=== PATIENT | female | born 1990 | race Caucasian/White ===

== ENCOUNTER 2017-07-29 18:46 | Emergency (ER) | payer BC, OTHER ==
[~2017-07-29] VITALS: Ht 172.7 cm; Wt 69.6 kg
[2017-07-29 18:59] VITALS: Ht 172.7 cm; Wt 69.6 kg
--- NOTE | 2017-07-29 20:12 | ERD ---
ER Documentation Chief Complaint Chief Complaint left neck pain w/ swelling x 2 days, anxiety HPI left sided biopsy 3 days , r/t 2 yr hx of a swollen gland, surgical site now feels swollen, pt repots dizziness, and weak. ROS All systems reviewed and are negative except as per history of present illness. Medications Home Meds Active Scripts Doxycycline Hyclate* (Doxycycline Hyclate*) 100 Mg Tablet.dr, 100 MG PO BID for 10 Days, #20 TAB Prov:MARSHA,JIM 07/29/17 Hydrocodone/Acetaminophen (Baldwin 5-325 Tablet) 1 Each Tablet, 1 TAB PO Q6H Y for PAIN, #20 TAB Prov:MARSHA,JIM 07/29/17 Allergies Allergies: Coded Allergies: cefaclor (Verified Allergy, Unknown, 07/29/17) Physical Exam Vitals Vital Signs Date Time Temp Pulse Resp B/P Pulse Ox O2 Delivery O2 Flow Rate FiO2 07/29/17 18:59 97.9 96 20 165/90 100 Physical Exam Const: Well-nourished well-hydrated well-appearing 26-year-old female no acute distress Head: Atraumatic Eyes: Normal Conjunctiva, PERRLA, EOMI ENT: Bilateral tympanic membranes translucent, auditory canals are clear, nasal mucosa moist, septum midline without bleeding points, pharynx is pink, uvula midline without shift, there is no visible ulceration, pustule, or edema to correlate with left lymphadenopathy Neck: Full range of motion..~ No meningismus. No bruising, erythema or warmth over firm tender lymph lymph node Resp: Cardio: Abd: Skin: Back: Ext: Neur: Awake and alert Psych: Normal Mood and Affect Result Diagram: 07/29/17202907/29/172029 Results 24 hrs Laboratory Tests Test 07/29/17 20:30 07/29/17 20:45 White Blood Count 9.910^3/ul Red Blood Count 4.2710^6/ul Hemoglobin 13.0g/dl Hematocrit 37.3% Mean Corpuscular Volume 87.4fl Mean Corpuscular Hemoglobin 30.4pg Mean Corpuscular Hemoglobin Concent 34.9g/dl Red Cell Distribution Width 12.0% Platelet Count 81752^3/UL Mean Platelet Volume 9.1fl Neutrophils % 70.7% Lymphocytes % 20.0% Monocytes % 6.2% Eosinophils % 2.4% Basophils % 0.5% Nucleated Red Blood Cells % 0.0/100WBC Neutrophils # 7.010^3/ul Lymphocytes # 2.010^3/ul Monocytes # 0.610^3/ul Eosinophils # 0.210^3/ul Basophils # 0.110^3/ul Nucleated Red Blood Cells # 0.010^3/ul Sodium Level 142mmol/L Potassium Level 3.8mmol/L Chloride Level 104mmol/L Carbon Dioxide Level 24mmol/L Anion Gap 18 Blood Urea Nitrogen 10mg/dl Creatinine 0.79mg/dl Glucose Level 93mg/dl Calcium Level 9.5mg/dl Total Bilirubin 0.3mg/dl Direct Bilirubin 0.00mg/dl Indirect Bilirubin 0.3mg/dl Aspartate Amino Transf (AST/SGOT) 19IU/L Alanine Aminotransferase (ALT/SGPT) 30IU/L Alkaline Phosphatase 47IU/L Total Protein 7.8g/dl Albumin 4.8g/dl Globulin 3.00g/dl Albumin/Globulin Ratio 1.60 Bedside Urine pH (LAB) 6.5 Bedside Urine Protein (LAB) Negative Bedside Urine Glucose (UA) Negative Bedside Urine Ketones (LAB) Negative Bedside Urine Blood Trace-intact Bedside Urine Nitrite (LAB) Negative Bedside Urine Leukocyte Esterase (L Negative Current Medications Medications (Trade) Dose Ordered Sig/Kd Route PRN Reason Start Time Stop Time Status Last Admin Dose Admin IV Flush 10 ml 10 ml STK-MED ONCE .ROUTE 07/29/17 20:27 07/29/17 20:28 DC Sodium Chloride (NS) 100 ml @ ud STK-MED ONCE .ROUTE 07/29/17 20:27 07/29/17 20:28 DC Iohexol (Omnipaque 300mg/ ml) 150 ml STK-MED ONCE .ROUTE 07/29/17 20:27 07/29/17 20:28 DC Interpretation text CBC shows no evidence of hemorrhage or infection Chemistry shows no evidence of significant electrolyte abnormalities or renal insufficiency Liver function tests shows no evidence of acute biliary or hepatic dysfunction Lipase shows no evidence of acute pancreatitis Urinalysis negative for evidence of infection Procedures/MDM PROCEDURE: CT Neck with contrast. CLINICAL INDICATION: Left submandibular swelling status post lymph node biopsy. TECHNIQUE: The study was performed utilizing a multislice multidetector CT scanner. Direct spiral 1 mm axial sections were obtained through the neck with the use of with the use of intravenous contrast material. 80 cc of Omnipaque- 300 was utilized without complication. 1 or more of the following dose reduction techniques were utilized: Automated exposure control, adjustment of the mA and/or kV according to patient's size, iterative reconstruction technique. Coronal and sagittal reformations were obtained. The images were reviewed on a PACS workstation. DICOM images are available. RADIATION DOSE: CTDIvol: 8.3 mGy DLP: 236.8 mGy-cm COMPARISON: No prior studies are available for comparison. FINDINGS: The nasopharynx, oropharynx and hypopharynx are normal in appearance. There is no tongue base mass. The larynx is normal in appearance. The parotid, submandibular and thyroid glands are normal in appearance. There are several moderately enlarged lymph nodes in the left submandibular region, the largest measuring 2.9 x 1.6 cm. There is a mild amount of soft tissue density adjacent to the lymph node, which is not with patient history of biopsy. There is no evidence of vascular extravasation or significant hematoma. There is no effacement of the parapharyngeal fat over the nasopharynx/oropharynx. The adjacent facial veins are normal in appearance. The vascular structures are normal. The paranasal sinuses and orbits are normal. Limited visualization of the intracranial contents is unremarkable. There are mild degenerative changes of the cervical spine. The lung apices are normal in appearance. IMPRESSION: 1. Significantly enlarged left submandibular (level II) lymph node measuring 2.9 x 1.6 cm, with mild adjacent soft tissue stranding compatible with patient history of recent biopsy. Given the size of the lymph node and adjacent common lymph nodes, concern is raised for possible lymphoid neoplasm. Follow-up results of patient's prior biopsy is recommended. No evidence of enlarging hematoma or vascular injury status post biopsy. RPTAT: HGAS .Isidro Merino MD, MD Date Time Electronically viewed and signed by .Isidro Merino MD, on 07/29/2017 22: 32 This 26-year-old female presents to emergency department for evaluation of pain and swelling, sensation of shortness of breath and difficulty swallowing. Patient reports that 3 days ago she had a biopsy done on a left-sided lymph node palpable under jaw. Patient has not received results at this time, she is satting 99% on room air, there is no obvious bruising, obvious unilateral edema. Emergency room course includes history and physical exam, CAT scan imaging with contrast, diagnostic laboratory testing, labs are unremarkable for anemia, hemorrhage, acute infection, no electrolyte imbalance or renal insufficiency, no hepatitis or pancreatitis. CAT scan is read by radiologist documents significant enlarged left submandibular, level 2, lymph node measuring 2.9 x 1.6 cm with mild adjacent soft tissue standing compatible with patient's history of recent biopsy. Given the size of the lymph node in the adjacent, lymph nodes concern is raised for possibility of lymph node neoplasm. Follow-up results of patient's prior biopsy is recommended no evidence of enlarged hematoma or vascular injury status post biopsy. This case discussed with supervising physician Dr. Mar plan to discharge patient home with pain control, Baldwin 5 mg 1 tab p.o. every 6 hours as needed pain, and doxycycline 100 mg mg 1 tab p.o. 2 times daily 10 days. Follow-up with primary physician for test results, return to emergency department for shortness of breath difficulty swallowing, or pain responding to treatment. Patient is stable with no new complaints during ER course, clinically there is no current evidence to suggest meningitis, sepsis, mandibular soft tissue hematoma or abscess acute abdomen, or any other emergent condition appearing to require further evaluation or hospitalization. I feel the patient is stable for discharge at this time. I have discussed results, examination findings, the treatment plan with the patient and family present prior to discharge. Indications for emergent reevaluation, side effects of medication were also discussed. All questions were answered. Patient verbalizes understanding and agrees with plan of care. Departure Diagnosis: Primary Impression: Enlarged lymph node in neck Additional Impression: Lymphadenopathy Condition: Good Patient Instructions: Lymphangitis, Lymphedema Additional Instructions: Thank you for for coming to [facility] for your care today. Please ask your nurse or provider if you have questions about your care today and do not leave until all your questions have been answered. Please use any medications given as directed and follow-up with your doctor (or the doctor you were referred to) in the next 2-3 days. If you do not have a primary care doctor you may follow up at the [facility] (listed below). You may also use motrin and tylenol as needed for fever and/or pain unless instructed otherwise by your provider or nurse. Indications for more urgent follow-up have been discussed, but you may return to the Emergency Department at ANY time for any worrisome or worsening symptoms. If you have abdominal pain, please know that no test or exam you received is perfect and you should follow up within 8 hours for continued pain. If you had any imaging studies today, such as an X-Ray or CT Scan, these studies will be reviewed later by a radiologist. You will be called if there are important findings that were not identified today, so make sure the contact information you provided at registration is correct. If you received any narcotic pain control medicine today, such as Vicodin, Morphine or Dilaudid, your coordination and judgment may be affected for a number of hours. Please do not drive or operate heavy machinery, and you may want someone to assist you at home. If you were given a prescription for narcotic medication, be aware that it is very addictive- use sparingly and only if necessary. JIM LARSON Jul 29, 2017 20:12
[2017-07-29] MEDS ORDERED: SOD CHLORIDE 0.9% 100 ML ONE (20:27)
[2017-07-29] MEDS ORDERED: IOHEXOL 300MG/ML 150 ML BTL ONE (20:27)
[2017-07-29 20:45] LABS: BASOPHIL # 0.1 10^3/ul (0.0-0.1); BASOPHILS % 0.5 % (0.0-2.0); EOSINOPHILS # 0.2 10^3/ul (0.0-0.5); EOSINOPHILS % 2.4 % (0.0-7.0); HEMATOCRIT 37.3 % (37.0-47.0); MEAN CORPUSCULAR HEMOGLOBIN 30.4 pg (29.0-33.0); MEAN CORPUSCULAR HGB CONC 34.9 g/dl (32.0-37.0); MEAN CORPUSCULAR VOLUME 87.4 fl (82.0-101.0); MEAN PLATELET VOLUME 9.1 fl (7.4-10.4); MONOCYTE # 0.6 10^3/ul (0.3-0.9); MONOCYTES % 6.2 % (0.0-11.0); NEUTROPHILS % 70.7 % (39.0-77.0); PLATELET COUNT 339 10^3/UL (140-415); RED BLOOD COUNT 4.27 10^6/ul (4.20-5.40); WHITE BLOOD COUNT 9.9 10^3/ul (4.8-10.8)
[2017-07-29 20:46] LABS: URINE BLOOD (Dip) POC Trace-intact (NEGATIVE)
[2017-07-29 21:08] LABS: ALBUMIN 4.8 g/dl (3.3-4.9); ALBUMIN/GLOBULIN RATIO 1.6; BILIRUBIN,INDIRECT 0.3 mg/dl (0-1.1); BILIRUBIN,TOTAL 0.3 mg/dl (0.2-1.3); CALCIUM 9.5 mg/dl (8.4-10.2); CREATININE 0.79 mg/dl (0.44-1.00); POTASSIUM 3.8 mmol/L (3.5-5.1); TOTAL PROTEIN 7.8 g/dl (6.1-8.1)
--- NOTE | 2017-07-29 22:33 | RADRPT ---
PROCEDURE: CT Neck with contrast. CLINICAL INDICATION: Left submandibular swelling status post lymph node biopsy. TECHNIQUE: The study was performed utilizing a multislice multidetector CT scanner. Direct spiral 1 mm axial sections were obtained through the neck with the use of with the use of intravenous contr ast material. 80 cc of Omnipaque-300 was utilized without complication. 1 or more of the following dose reduction techniques were utilized: Automated exposure control, adjustment of the mA and/or kV according to patient's size, iterative reconstruction technique. Coronal and sagittal reformations were obtained. The images were reviewed on a PACS workstation. DICOM images are available. RADIATION DOSE: CTDIvol: 8.3 mGyDLP: 236.8 mGy-cm COMPARISON: No prior studies are available for comparison. FINDINGS: The nasopharynx, oropharynx and hypopharynx are normal in appearance. There is no tongue base mass. The larynx is normal in appearance. The parotid, submandibular and thyroid glands are normal in a ppearance. There are several moderately enlarged lymph nodes in the left submandibular region, the largest measuring 2.9 x 1.6 cm. There is a mild amount of soft tissue density adjacent to the lymph node, which is not with patient history of biopsy. There is no evidence of vascular extravasation or significant hematoma. There is no effacement of the parapharyngeal fat over the nasopharynx/orophar ynx. The adjacent facial veins are normal in appearance. The vascular structures are normal. The pa ranasal sinuses and orbits are normal. Limited visualization of the intracranial contents is unrema rkable. There are mild degenerative changes of the cervical spine. The lung apices are normal in a ppearance. IMPRESSION: 1. Significantly enlarged left submandibular (level II) lymph node measuring 2.9 x 1.6 cm, with mild adjacent soft tissue stranding compatible with patient history of recent biopsy. Given the size of the lymph node and adjacent common lymph nodes, concern is raised for possible lymphoid neoplasm. Fo llow-up results of patient's prior biopsy is recommended. No evidence of enlarging hematoma or vascu lar injury status post biopsy. RPTAT: HGAS .Isidro Merino MD, Date Time Electronically viewed and signed by .Isidro Merino MD, on 07/29/2017 22:32 .S/
[2017-07-29] MEDS ORDERED: HYDR-906 PO (23:27)
[2017-07-29] MEDS ORDERED: DOXY100T20 PO (23:30)
[2017-07-29 23:41] VITALS: BP 111/68; PULSE 80; RESP 18; TEMP 98.2
== END 2017-07-29 23:43 | disposition home or self-care (01) ==
LOC: FTE 18:46
DX: R59.0 Localized enlarged lymph nodes (principal)
CPT/HCPCS: 36415; 70491; 80053; 81003; 85025; 99284; Q9967; Z7610

== ENCOUNTER 2019-07-02 15:50 | Emergency (ER) | payer BC ==
[~2019-07-02] VITALS: Ht 170.2 cm; Wt 66.3 kg
[~2019-07-02 15:50] MED LIST: DOXY-214 PO; HYDR-4011 PO; ONDA4TAB14 PO
[2019-07-02 15:59] VITALS: Ht 170.2 cm; Wt 66.3 kg
[2019-07-02] MEDS ORDERED: SOD CHLORIDE 0.9% 1,000 ML IV STA (17:25)
[2019-07-02] MEDS ORDERED: ONDANSETRON 4 MG INJ IV STA (17:25)
[2019-07-02 19:03] VITALS: BP 105/61; PULSE 64; RESP 16
== END 2019-07-02 19:04 | disposition home or self-care (01) ==
LOC: FTE 15:50
DX: R51 Headache (principal); R10.9 Unspecified abdominal pain; R53.81 Other malaise
CPT/HCPCS: 36415; 80053; 81001; 81025; 83690; 85025; 87400; 96374; 99284; J2405; J7030